=== PATIENT | female | born 1960 | race Caucasian/White ===

== ENCOUNTER 2018-01-03 10:17 | Emergency (ER) | payer BC ==
[~2018-01-03] VITALS: Ht 157.5 cm; Wt 70.3 kg
[2018-01-03] MEDS ORDERED: NORCO 5-325 TA1 EACH PO (10:25)
[2018-01-03] MEDS ORDERED: IBUPROFEN 600600 M1 PO (10:26)
[2018-01-03] MEDS ORDERED: PREDNISONE 20 M20 MG PO (12:14)
[2018-01-03] MEDS ORDERED: CARISOPRODOL 3350 MG PO (12:14)
[2018-01-03 12:42] VITALS: BP 129/73
== END 2018-01-03 12:43 | disposition home or self-care (01) ==
LOC: ER 10:17
DX: M54.12 Radiculopathy, cervical region (principal); M79.602 Pain in left arm; Z88.8 Allergy status to other drugs, medicaments and biological substances